=== PATIENT | female | born 1970 ===

== ENCOUNTER 2024-03-16 05:11 | Day surgery (SDC) | payer OTHER ==
[2024-03-12 08:46] VITALS: BP 131/85
[2024-03-12 08:51] LABS: HEMOGLOBIN 13.7 g/dL (12.0-15.00); MEAN CELL VOLUME 78.3 fL (80.00-100.00); MEAN CORPUSCULAR HEMOGLOBIN 25.6 pg (27.00-32.0); MEAN CORPUSCULAR HGB CONC 32.7 g/dl (32.0-36.0); PLATELET COUNT 165 K/uL (150-450); RED BLOOD COUNT 5.36 M/uL (4.00-6.00); RED CELL DISTRIBUTION WIDTH 14.7 % (11.5-14.5)
[2024-03-12 09:15] LABS: PARTIAL THROMBOPLASTIN TIME 25.4 SECONDS (22.0-34.0); PROTHROMBIN TIME 10.9 SECONDS (9.0-11.5)
[2024-03-12 09:55] LABS: ALBUMIN 3.8 gm/dL (3.4-5.0); BILIRUBIN TOTAL 0.41 mg/dL (0.3-1.2); CALCIUM 10.7 mg/dL (8.5-10.1); CREATININE SERUM 1.1 mg/dL (0.55-1.02); GFR 52.16; GLOBULINA 2.9 G/DL (2.4-3.5); POTASSIUM 4.33 mEq/L (3.5-5.1); TOTAL PROTEIN 6.7 gm/dL (6.4-8.2)
[2024-03-12 10:19] LABS: PH,URINE 6.5 (5.0-8.0); URINE APPEARANCE Clear; URINE BILIRRUBIN Negative (NEGATIVE); URINE BLOOD Negative; URINE COLOR Yellow; URINE GLUCOSE Negative (NEGATIVE); URINE KETONE Negative (NEGATIVE); URINE LEUKOCYTE Negative; URINE NITRATE Negative; URINE PROTEIN Negative (NEGATIVE)
[2024-03-12 10:21] LABS: URINE RBC 10.4 uL (0.0-20.8); URINE WBC 10.4 uL (0.0-23.2)
[2024-03-12 10:27] LABS: URINE CAST 0.14 uL (0.0-1.40)
[~2024-03-16] VITALS: Ht 165.1 cm; Wt 81.6 kg
[~2024-03-16 05:11] MED LIST: CALCIO; LEXAPRO5 MG; LIPITOR40 M1 PO; MULTI VITAMIN1 EACH PO; NORVASC10 MG PO; OMEGA 3-6-9 11200 M1 PO; OMEPRAZOLE-BIC1 EAC1 PO; PROBIOTIC1 EAC4 PO; TOPROL XL50 M1 PO; VITAMIN D310 MC4 PO
[2024-03-16] MEDS ORDERED: DEXAMETHASONE SODIUM PHOSPHATE 4 MG/ML VIAL ONE ×2 (07:12→07:48)
[2024-03-16] MEDS ORDERED: CEFAZOLIN SODIUM 1,000 MG VIAL ONE (07:13)
[2024-03-16] MEDS ORDERED: MORPHINE SULFATE 4 MG/ML VIAL IV ONE ×2 (11:55→12:45)
[2024-03-16 14:50] VITALS: O2SAT 100
[2024-03-18 13:19] VITALS: BP 134/86
== END 2024-03-16 14:40 | disposition home or self-care (01) ==
LOC: CIR.AMB 05:11
PROVIDERS: ATTEND Surgery
DX: E21.0 Primary hyperparathyroidism (principal)